=== PATIENT | male | born 1960 | race Caucasian/White ===

== ENCOUNTER → 2024-11-12 10:31 | Outpatient (REF) | payer OTHER, SELFPAY | LOC: RAD 10:31 | PROVIDERS: ATTENDING PHYSICIAN Specialist; FAMILY PHYSICIAN Family Medicine | DX: N43.40 Spermatocele of epididymis, unspecified (principal) | CPT/HCPCS: 76870; 93976 ==

== ENCOUNTER 2024-12-31 16:58 | Emergency (ER) | payer OTHER, SELFPAY ==
[2024-12-31 17:03] VITALS: BP 210/103
--- NOTE | 2024-12-31 18:19 | ED.GENMED ---
History of Present Illness
General
Chief Complaint: Nose Bleed
Time Seen by Provider: 12/31/24 18:18
History of Present Illness
History of Present Illness:
TIME OF INITIAL ENCOUNTER: 6:45 PM
HPI: The patient presents with nosebleed from the left nostril that started 3 hours ago. He reports his INR was 2.5 yesterday. He states he has had chemical cauterization in the past and has had packing in the past as well. The patient is on
Plavix in addition to Coumadin. He is not on aspirin.
EXAM:
GENERAL: Well appearing in no distress
HEENT: Scant amount of blood noted from the inferior aspect of the anterior nasal septum
NEUROLOGIC: Excellent strength all extremities, no obvious coordination deficits
PSYCHIATRIC: Appropriate mental status, normal insight and judgement
EXTREMITIES: Nontender, no edema, moves all extremities equally
SKIN: No rash, no lesions
NUMBER AND COMPLEXITY OF PROBLEMS ADDRESSED AT THE ENCOUNTER
� Chronic conditions affecting care: CAD, high blood pressure, ischemic cardiomyopathy, history of LV apical thrombus with embolic disease, diabetes
� Acute Exacerbation and/or Progression of Chronic Illness: This is an acute problem
� Differential Diagnosis includes: Anterior nosebleed, posterior nosebleed, Coumadin coagulopathy
AMOUNT AND/OR COMPLEXITY OF DATA TO BE REVIEWED AND ANALYZED
� I performed an independent evaluation of and my interpretation is:
EKG:
CT:
X-rays:
Laboratory Studies:
Other:
� Review of other/old records: The patient was admitted here with aphasia in 2022
� Clinical information was obtained by an independent historian: Spoke to at bedside
� Prescriptions/Medications Considered but not given:
� Further testing considered but not performed: Consider checking INR however the patient just check his INR was 2.5 yesterday and states that these values generally correlate very well with lab values.
RISK OF COMPLICATIONS AND/OR MORBIDITY OR MORTALITY OF PATIENT MANAGEMENT
� Social determinants of health affecting care: Lives at home
� Discussion with other providers:
� Escalation of care including admission/observation vs risk of discharge considered: I had the patient blow his nose and small clots were removed from the left nostril. I then cauterized a likely site of bleeding in the
inferior aspect of the left nasal septum. I placed additional Jerrod-Synephrine soaked cotton. Pressure was again placed.
ANY OTHER UPDATES:
On reassessment prior to discharge, no further bleeding.
Past History
Past History
ED Past Medical History: CAD, Cancer (Malignant melanoma), CVA, HTN, Hypercholesterolemia, NIDDM, [place] and Other
ED Past Surgical History: Other (Open heart surgery)
Social History
Tobacco: Non-smoker
Alcohol: Occasional
Drug: None
Personal:
Living: with family
Phy Exam
Physical Exam
Physical Exam:
See HPI
Course
Orders/Labs/Results
Orders:
Orders
12/31/24 18:34
Phenylephrine 0.5% Regular Spr [Jerrod-Synephrine 0.5% Nasal [place]] 1 spray .ROUTE .[facility]
12/31/24 17:11
Vital Signs
Initial and Last Documented VS:
Initial Vital Signs
Temp Pulse Resp BP Pulse Ox
36.4 C 55 20 210/103 98
12/31/24 17:03 12/31/24 17:03 12/31/24 17:03 12/31/24 17:03 12/31/24 17:03
Last Documented Vital Signs
Temp Pulse Resp BP Pulse Ox
36.4 C 54 20 168/89 99
12/31/24 17:03 12/31/24 19:22 12/31/24 17:03 12/31/24 19:22 12/31/24 19:22
Procedures
Nosebleed
Drug treatment: Neosynephrine
Treatment: local pressure applied and Silver nitrate cautery
Post treatment bleeding: none- good control
*Critical Care Note
Total Time (30-74mins, 75-104mins- exclusive of procedures): Not Applicable
ED Attending Note
-
Portions of this chart may have been created with voice recognition software.� Occasional wrong word or��sound alike� substitutions may have occurred due to the inherent limitations of voice recognition software.
Discharge Plan
Departure
Patient Disposition: Home (Routine Discharge)
Date of Disposition: 12/31/24
Time of Disposition: 19:14
Patient with high blood pressure during this ER visit?: Yes
Discharge Problem:
Acute anterior epistaxis
Instructions: Nosebleeds (DC), BLOOD PRESSURE
Prescriptions:
No Action
atorvastatin 80 MG tablet
80 mg PO HS
ascorbic acid (vitamin C) 250 MG tablet,chewable
1,000 mg PO DAILY
omega [id number] oil [Fish Oil] 1 EACH capsule
1 ea PO DAILY
krill oil 1 EACH capsule
1 ea PO DAILY
acetaminophen 325 MG tablet
650 mg PO Q4HPRN PRN (Reason: mild pain,headache,temp >101F ) 0RF
carvedilol 3.125 MG tablet
3.125 mg PO BID Qty: 60 3RF
lisinopril 2.5 MG tablet
2.5 mg PO DAILY Qty: 30 3RF
multivitamin Tablet
1 tab PO DAILY
lysine 1,000 mg Tablet
1,000 mg PO DAILY
sildenafil 100 mg Tablet
100 mg PO DAILY PRN (Reason: unknown)
nitroglycerin 0.4 mg Tablet, Sublingual
0.4 mg SUBLINGUAL Q5M PRN (Reason: chest pain)
ezetimibe [Zetia] 10 mg Tablet
10 mg PO DAILY
omega-3 fatty acids-vitamin E 1,000 mg Capsule
1 cap PO DAILY
Jardiance 10 mg Tablet
10 mg PO DAILY
(DME) FreeStyle Jerrod 14 Day Sensor Kit
MISCELLANEOUS
warfarin [Jantoven] 7.5 mg Tablet
9 mg PO QPM Qty: 0 0RF
enoxaparin 80 mg/0.8 mL Syringe
80 mg SC Q12H Qty: 16 0RF
clopidogrel 75 mg tablet
75 mg PO DAILY Qty: 30 0RF
levetiracetam [Keppra] 500 mg tablet
500 mg PO BID Qty: 60 0RF
Referrals:
UNKNOWN - PT DOES,NOT KNOW [Unknown Provider] -
Activity Restrictions/Additional Instructions:
I did use Jerrod-Synephrine soaked cotton twice as well as chemical cauterization with a silver nitrate stick. Return here if worse or other concerns. Be sure to continue your blood pressure medication as your blood pressure was very high when you
first came in tonight. Continue to monitor your Coumadin level as an outpatient.
Interventions
Interventions:
*Risk Screen - Suicide Last Done: 12/31/24 17:03
*General Assessment Last Done: 12/31/24 18:20
*Neglect/Abuse Screening Last Done: 12/31/24 18:25
*ED- Fall Risk Assessment Last Done: 12/31/24 18:48
*ED COVID-19 Vaccine History Last Done: 12/31/24 18:48
*Nursing Disposition Last Done: 12/31/24 19:32
ED-EENT Assessment Last Done: 12/31/24 18:25
Discharge Date and Time
Discharge Date/Time: 12/31/24 19:33
Print Language: JAPANESE
[2024-12-31 18:47] VITALS: BMI 29.1
[2024-12-31 19:22] VITALS: BP 168/89
== END 2024-12-31 19:33 | disposition home or self-care (01) ==
LOC: EMR 16:58
PROVIDERS: EMERGENCY PHYSICIAN Emergency Medicine; FAMILY PHYSICIAN Family Medicine
DX: R04.0 Epistaxis (principal); I10 Essential (primary) hypertension
CPT/HCPCS: 99282; 30901